=== PATIENT | male | born 1985 | race Hispanic/Latino ===

== ENCOUNTER 2016-07-02 06:36 | Emergency (ER) | payer OTHER, SELFPAY ==
[2016-07-02 06:54] LABS: Blood, Urine Negative (Negative); Clarity Clear (Clear); Glucose, Urine (Dipstick) Negative (Negative); Leukocyte Negative (Negative); Nitrite Negative (Negative); Protein, Urine (Dipstick) 100 mg/dL (Neg-Trace)
[2016-07-02 06:55] LABS: Bilirubin Negative (Negative); Icto Negative (Negative); RBC/HPF None Seen HPF (0-3); Specific Gravity, Urine 1.039 (1.002-1.036); WBC/HPF None Seen HPF (0-3)
[2016-07-02 06:56] LABS: Bacteria/HPF None Seen HPF (None Seen); Squamous Epithelial 0-3 HPF (0-3)
[2016-07-02] MEDS ORDERED: Ondansetron ODT 4 MG TAB ONE (07:09)
[2016-07-02] MEDS ORDERED: Fentanyl 100 MCG/2 ML VIAL ONE (07:09)
[2016-07-02] MEDS ORDERED: Ketorolac Tromethamine 30 MG/ML VIAL ONE (07:09)
[2016-07-02] MEDS ORDERED: Sodium Chloride 0.9% 1,000 ML ONE (07:32)
[2016-07-02 07:33] LABS: #Lymphocytes 2.4 thou/uL (1.20-3.40); #Monocytes 0.8 thou/uL (0.11-0.59); #Neutrophils 10.6 thou/uL (1.40-6.50); %Basophils 0.3 % (0.0-1.0); %Eosinophils 0.3 % (0.0-10.0); %Monocytes 5.5 % (0.0-10.0); %Neutrophils 76.9 % (42.0-75.0); Hemoglobin 16.1 g/dL (14.0-18.0); Mean Corpuscular HGB CONC 34.9 g/dL (32.0-36.0); Mean Platelet Volume 8.6 fL (7.4-10.4); Platelet Count 253 thou/uL (130-400); RBC Distribution Width 11.6 % (11.5-14.5); Red Blood Cell (RBC) Count 5.37 mill/uL (4.70-6.10); White Blood Cell (WBC) Count 13.8 thou/uL (4.8-10.8)
--- NOTE | 2016-07-02 07:39 | CT ---
CT ABDOMEN AND PELVIS NONCONTRAST: HISTORY: Right flank pain. FINDINGS: The right renal collecting system and ureter are slightly distended to the level of a 0.2 cm calculu s at the right ureterovesicular junction. The left renal collecting system and ureter are decompres sed. No other stones are evident. Lack of contrast limits evaluation for other abnormalities. Small lipoma is noted at the posterior aspect of the left diaphragm. IMPRESSION: Low-grade obstruction at a 2 mm right ureterovesicular junction calculus. No other urinary tract ca lcifications are apparent. POS: SHLOMO
[2016-07-02 07:53] LABS: ALT (SGPT) 21 U/L (8-55); AST (SGOT) 16 U/L (5-34); Albumin 4.3 g/dL (3.5-5.0); Alkaline Phosphatase 77 U/L (40-150); Anion Gap 15 mmol/L (10-20); BUN (Urea Nitrogen) 18 mg/dL (8.9-20.6); Bilirubin, Total 0.6 mg/dL (0.2-1.2); Calc. Creatinine Clearance 0 mL/min (70-130); Calcium 9.2 mg/dL (7.8-10.44); Carbon Dioxide 24 mmol/L (22-29); Chloride 103 mmol/L (98-107); Estimated GFR-MDRD 74; Globulin 3.2 g/dL (2.4-3.5); Glucose 135 mg/dL (70-105); Potassium 3.4 mmol/L (3.5-5.1); Protein, Total 7.5 g/dL (6.0-8.3); Sodium 139 mmol/L (136-145)
== END 2016-07-02 08:13 | disposition home or self-care (01) ==
LOC: NAV ERS 06:36
DX: N13.2 Hydronephrosis with renal and ureteral calculous obstruction (principal)
CPT/HCPCS: 36415; 74176; 80053; 81003; 81015; 85025; 96361; 96374; 96375; J1885; J3010; J7050; Q0162